=== PATIENT | female | born 1970 | race Caucasian/White ===

== ENCOUNTER 2020-09-02 09:18 | Emergency (ER) | payer OTHER ==
[2020-09-02 09:36] VITALS: BMI 25.2
[2020-09-02] MEDS ORDERED: ACETAMINOPHEN 1000 MG/100 ML BAG IVPB ONE (09:57)
[2020-09-02] MEDS ORDERED: METOCLOPRAMIDE HCL INJECTION 10 MG/2 ML VIAL IVPB ONE (09:57)
[2020-09-02] MEDS ORDERED: SODIUM CHLORIDE 1,000 ML IV STA (09:57)
[2020-09-02] MEDS ORDERED: METOCLOPRAMIDE HCL INJECTION 10 MG/2 ML VIAL ONE (10:02)
[2020-09-02] MEDS ORDERED: ACETAMINOPHEN INJECTION 100 ML IVPB ONE (10:02)
[2020-09-02 10:23] LABS: BASO % 0.5 % (0-2.0); EOS % 0.4 % (0-4.5); HEMATOCRIT 44.2 % (32.4-45.2); HEMOGLOBIN 14.7 GM/dL (10.7-15.3); LYMPH % 13.6 % (8-40); MCH 29.4 pg (25.7-33.7); MCHC 33.2 g/dl (32.0-36.0); MEAN CELL VOLUME 88.4 fl (80-96); MEAN PLT VOLUME 7.6 fl (7.5-11.1); MONO % 4.3 % (3.8-10.2); NEUT % 81.2 % (42.8-82.8); PLATELET COUNT 317 K/MM3 (134-434); RDW 14.1 % (11.6-15.6); WHITE BLOOD COUNT 12.3 K/mm3 (4.0-10.0)
[2020-09-02 10:45] LABS: ALBUMIN 4.3 g/dl (3.4-5.0); BLOOD UREA NITROGEN 18.8 mg/dL (7-18); CALCIUM 9.3 mg/dL (8.5-10.1)
[2020-09-02 10:48] LABS: CREATININE 0.8 mg/dL (0.55-1.3)
[2020-09-02 10:50] LABS: BILIRUBIN,TOTAL 0.6 mg/dL (0.2-1); TOT PROT 8.1 g/dl (6.4-8.2)
[2020-09-02 13:23] VITALS: BP 110/74; PULSE 84; TEMP 98.2
== END 2020-09-02 13:24 | disposition home or self-care (01) ==
LOC: JER 09:18
PROC: 3E033NZ Introduction of Analgesics, Hypnotics, Sedatives into Peripheral Vein, Percutaneous Approach (ICD-10-PCS; principal; 2020-09-02)
PROC: 3E033GC Introduction of Other Therapeutic Substance into Peripheral Vein, Percutaneous Approach (ICD-10-PCS; 2020-09-02)
PROC: 3E0337Z Introduction of Electrolytic and Water Balance Substance into Peripheral Vein, Percutaneous Approach (ICD-10-PCS; 2020-09-02)
DX: G43.909 Migraine, unspecified, not intractable, without status migrainosus (principal)
CPT/HCPCS: 36415; 80053; 85025; 99285-25; C9803; J0131; U0003